=== PATIENT | male | born 1985 ===

== ENCOUNTER 2019-08-18 10:12 | Emergency (ER) | payer OTHER | END 2019-08-18 12:39 | disposition home or self-care (01) | LOC: ER 10:12 | DX: K60.0 Acute anal fissure (principal) ==

== ENCOUNTER 2019-08-31 13:39 | Outpatient (CLI) | payer OTHER | END 2019-08-31 13:51 | disposition home or self-care (01) | LOC: LAB 13:39 | PROVIDERS: ATTEND General Practice | DX: J11.1 Influenza due to unidentified influenza virus with other respiratory manifestations (principal); Z20.828 Contact with and (suspected) exposure to other viral communicable diseases; Z11.59 Encounter for screening for other viral diseases; R07.0 Pain in throat; Z11.4 Encounter for screening for human immunodeficiency virus [HIV] ==